=== PATIENT | female | born 1975 | race Caucasian/White ===

== ENCOUNTER → 2023-03-01 10:30 | Outpatient (BNVA) | payer OTHER, SELFPAY | PROVIDERS: PCP Family Medicine; Visit Provider Internal Medicine | DX: E03.9 Hypothyroidism, unspecified (principal) | CPT/HCPCS: 83516; 84439; 84443; 86376; 86800 ==

== ENCOUNTER → 2023-05-30 12:15 | Outpatient (BNVA) | payer OTHER, SELFPAY | PROVIDERS: PCP Family Medicine; Visit Provider Psychiatry & Neurology Neurology | DX: R25.9 Unspecified abnormal involuntary movements (principal); E55.9 Vitamin D deficiency, unspecified; E03.9 Hypothyroidism, unspecified; R41.3 Other amnesia; G47.00 Insomnia, unspecified; E53.8 Deficiency of other specified B group vitamins | CPT/HCPCS: 36415; 80053; 82306; 82525; 82607; 82746; 83090; 83735; 83921; 84207; 84630; 85025 ==

== ENCOUNTER 2023-06-25 11:45 | Outpatient (CLI) | payer OTHER, SELFPAY ==
[2023-06-26 12:13] LABS: Ceruloplasmin 40 mg/dL (18-53)
[2023-06-27 15:37] LABS: Copper Level 166 mcg/dL (70-175)
== END 2023-06-25 11:46 | disposition home or self-care (01) ==
PROVIDERS: PCP Family Medicine; Visit Provider Psychiatry & Neurology Neurology
DX: G25.3 Myoclonus (principal); R56.9 Unspecified convulsions; R41.3 Other amnesia; R29.898 Other symptoms and signs involving the musculoskeletal system; R41.0 Disorientation, unspecified; R25.9 Unspecified abnormal involuntary movements; R26.0 Ataxic gait
CPT/HCPCS: 36415; 82390; 82525

== ENCOUNTER 2023-07-01 14:22 | Outpatient (CLI) | payer OTHER, SELFPAY | END 2023-07-01 14:23 | disposition home or self-care (01) | LOC: LAB 14:23 | PROVIDERS: PCP Family Medicine; Visit Provider Psychiatry & Neurology Neurology | DX: G25.3 Myoclonus (principal); R56.9 Unspecified convulsions; R41.3 Other amnesia; R29.898 Other symptoms and signs involving the musculoskeletal system; R41.0 Disorientation, unspecified; R26.0 Ataxic gait | CPT/HCPCS: 82525 ==

== ENCOUNTER 2023-07-18 14:44 | Outpatient (CLI) | payer OTHER, SELFPAY ==
--- NOTE | 2023-07-18 15:15 | MR_ITS ---
WS: [id number] MRI BRAIN WITH AND WITHOUT CONTRAST HISTORY: R25.9 - Unspecified abnormal involuntary movements COMPARISON: None available. TECHNIQUE: Multiplanar imaging performed through the brain with MultiHance 13 ml's IV. No acute infarcts are seen. Varghese-white matter differentiation is well preserved. Normal hippocampal f ormations. There are a few scattered T2 and FLAIR signal hyperintensities which are not unusual for t he patient's age. No prior infarct. No susceptibility artifacts or prior lacunar infarcts. Ventricles and extra-axial spaces are normal. Clivus and pituitary gland are normal. Visualized posterior fossa and brainstem are also normal. Postcontrast images are negative for masses or vascular malformations. Dural venous sinuses are normal. Paranasal sinuses: Well aerated with no significant disease. Mastoid air cells: Normal. Calvarium and scalp: Normal. MR/MR head wo/w con [id number] IMPRESSION: 1. No acute infarct or hemorrhage. 2. Normal hippocampal formations. 3. No vascular malformation or enhancing mass. 4. No significant volume loss. No prior infarct.
[2023-07-18] MEDS: gadobenate dimeglumine 20 mL vial IV (15:59)
--- NOTE | 2023-07-18 16:00 | MR_ITS ---
WS: [id number] MRI LUMBAR SPINE WITH AND WITHOUT CONTRAST HISTORY: R29.2 - Abnormal reflex COMPARISON: None available. TECHNIQUE: Sagittal and axial multisequence imaging is submitted. Postcontrast imaging in 2 planes. 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 Normal lumbar alignment with no compression fractures or marrow edema. Mild disc desiccation at L4-5. The remaining discs are normal. Conus terminates normally at L1-2 disc level. L1-L2: Normal. L2-L3: Mild bilateral facet joint arthritis. No stenosis. L3-L4: Mild annular disc bulging with bilateral facet arthropathy. Very mild LEFT foraminal narrowing . L4-L5: Mild annular disc bulging with a shallow LEFT foraminal disc protrusion. Moderate facet arthro josefina. Disc encroachment upon the ventral thecal sac and subarticular recesses. There is deformity of the traversing L5 nerve roots, LEFT greater than RIGHT. There is also disc contact on the exiting LE FT L4 nerve root. Mild bilateral foraminal stenosis. L5-S1: Mild facet arthritis. No stenosis. Extrarenal pelvis RIGHT kidney. No discitis or osteomyelitis. No enhancement of the nerve roots. MR/MR lumbar spine wo/w con [id number] IMPRESSION: 1. L4-5: Mild central with moderate bilateral subarticular recess stenosis and mild foraminal stenosis due to combination of disc and osteophyte disease. Mos t significant encroachment upon the traversing L5 nerve roots, LEFT greater brendon n RIGHT and the exiting LEFT L4 nerve root. Moderate facet arthropathy at L4-5. 2. L3-4: Very mild LEFT foraminal narrowing. 3. No discitis or osteomyelitis. No nerve root enhancement.
== END 2023-07-18 14:45 | disposition home or self-care (01) ==
LOC: RAD 14:44
PROVIDERS: PCP Family Medicine; Visit Provider Psychiatry & Neurology Neurology
DX: R25.9 Unspecified abnormal involuntary movements (principal); G47.00 Insomnia, unspecified; R45.86 Emotional lability; R41.3 Other amnesia; R29.2 Abnormal reflex; M48.07 Spinal stenosis, lumbosacral region; E03.9 Hypothyroidism, unspecified
CPT/HCPCS: 36415; 70553; 72158; 84439; 84443; A9577

== ENCOUNTER → 2023-09-17 12:52 | Outpatient (BNVA) | payer OTHER, SELFPAY | PROVIDERS: PCP Family Medicine; Visit Provider Orthopaedic Surgery | DX: E03.9 Hypothyroidism, unspecified; M48.062 Spinal stenosis, lumbar region with neurogenic claudication; Z91.014 Allergy to mammalian meats; F41.9 Anxiety disorder, unspecified; R45.86 Emotional lability; G47.00 Insomnia, unspecified; R25.9 Unspecified abnormal involuntary movements; Z79.890 Hormone replacement therapy | CPT/HCPCS: 36415; 72110; 84439; 84443; 86003; 86008 ==

== ENCOUNTER 2024-03-17 09:24 | Outpatient (CLI) | payer OTHER, SELFPAY ==
[2024-03-17 10:18] LABS: Free T4 Free Thyroxine 1.75 ng/dL (0.82-1.77); Thyroid Stimulating Hormone 0.46 uIU/mL (0.27-4.20)
== END 2024-03-17 09:25 | disposition home or self-care (01) ==
PROVIDERS: PCP Family Medicine; Visit Provider Internal Medicine
DX: E03.9 Hypothyroidism, unspecified (principal)
CPT/HCPCS: 36415; 84439; 84443

== ENCOUNTER → 2024-03-18 15:29 | Outpatient (BNVA) | payer OTHER, SELFPAY | PROVIDERS: PCP Family Medicine; Visit Provider Psychiatry & Neurology Neurology | DX: G25.3 Myoclonus (principal); R56.9 Unspecified convulsions; R26.0 Ataxic gait; R25.9 Unspecified abnormal involuntary movements; R41.0 Disorientation, unspecified; R29.898 Other symptoms and signs involving the musculoskeletal system; R41.3 Other amnesia | CPT/HCPCS: 86337; 86341 ==

== ENCOUNTER 2024-05-06 13:03 | Outpatient (CLI) | payer OTHER, SELFPAY ==
--- NOTE | 2024-05-06 13:45 | MR_ITS ---
WS: [id number] MRI HEAD WITH CONTRAST TECHNIQUE: Sagittal T1, T2 axial, T2 axial FLAIR, axial susceptibility weighted imaging, axial diffusion weighted images, and coronal T2 images were obtained. Pre and post-T1 axial and post T1 coronal images. ADC and FSPGR images. 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 Ventricular system and basal cisterns are patent. Few tiny foci of T2 hyperintensity in the periventricular white matter of doubtful clinical significance but can be seen with hypertension, diabetes, and migraine headaches. No suspicious intracranial s ignal abnormalities. Some images degraded by motion. Mild cerebellar tonsillar ectopia unchanged. Normal posterior fossa. Normal vascular flow voids at the skull base. No extra- axial fluid collections. No evidence of mass or mass effect. Paranasal sinuses and mastoid air cells are well aerated. Normal posterior nasopharynx. No hemosiderin on the susceptibly weighted images. Normal optic chiasm and pituitary infundibulum. Temporal lobes and hippocampal formations are normal in appearance. No abnormal intracranial enhancement. Normal dural venous sinuses. No other suspicious findings. MR/MR head wo/w con [id number] IMPRESSION: Some images degraded motion. 1. No evidence of restricted diffusion to suggest acute ischemia. 2. No suspicious intracranial signal abnormalities. 3. 2 or 3 tiny foci of periventricular and subcortical T2 hyperintensity seen on the FLAIR imaging likely incidental but can be seen with hypertension diabet es and migraine headaches. 4. No normal gadolinium enhancement. 5. Mild cerebellar tonsillar ectopia. 6. No other acute findings.
[2024-05-06] MEDS: gadobenate dimeglumine 20 mL vial 13 ML IV (14:19)
== END 2024-05-06 13:04 | disposition home or self-care (01) ==
LOC: RAD 13:05
PROVIDERS: PCP Family Medicine; Visit Provider Psychiatry & Neurology Neurology
DX: G25.3 Myoclonus (principal); R56.9 Unspecified convulsions; R41.3 Other amnesia; R41.0 Disorientation, unspecified; R93.0 Abnormal findings on diagnostic imaging of skull and head, not elsewhere classified
CPT/HCPCS: 70553; A9577

== ENCOUNTER 2024-05-25 08:53 | Outpatient (CLI) | payer OTHER, SELFPAY ==
--- NOTE | 2024-05-25 09:15 | FL_ITS ---
WS: [email or web address] LUMBAR PUNCTURE UNDER FLUOROSCOPY: OBTAIN CSF FOR ANALYSIS HISTORY: M48.062 - Spinal stenosis, lumbar region with neurogenic ... COMPARISON: None available. FLUOROSCOPY TIME: 0min [id number] # of spot films: 1 Procedure, complications, and risk and benefits explained to the patient. Consent was obtained. Recent laboratory work and medication are reviewed prior to procedure. Skin over the lumbar is cleansed with ChloraPrep and anesthetized with 1% buffered lidocaine. Access into the thecal sac is achieved. CSF is removed in a sterile manner and placed in the sterile tubes. Approximately 12 ml are removed without difficulty. Opening pressure: 12.5 cmH2O. Closing pressure: No significant change. No complications are encountered. CSF this into the laboratory for analysis as requested. FL/FL guided lumbarpunc dx* [id number] IMPRESSION: Uncomplicated lumbar puncture for CSF.
[2024-05-25 10:30] LABS: Mononuclear WBC CSF % 0 % (50-90); Polynuclear WBC CSF % 100 % (0-10); Red Blood Cell CSF 0 10^3/uL (0-0); White Blood Cell CSF 1 /uL (0-5)
[2024-05-25 10:46] LABS: Glucose CSF 57 mg/dL (40-70); Total Protein CSF 21 mg/dL (15-45)
[2024-05-25 11:17] LABS: Appearance CSF CLEAR (CLEAR); Color CSF COLORLESS (COLORLESS)
[2024-05-25 11:43] LABS: CA 125 6.3 U/mL (0-35)
[2024-05-25 11:44] LABS: Albumin Body Fluid 0.2 g/dL
[2024-05-25 11:45] LABS: Tumor Marker Alpha Fetoprotein 2.8 ng/mL (0-8.3)
[2024-05-27 07:40] LABS: Thyroid Peroxidase Antobodies 5 IU/mL (<9)
[2024-05-27 08:45] LABS: Thyroglobulin AB 271 IU/mL (< or = 1)
[2024-05-29 01:40] LABS: VDRL on CSF NON-REACTIVE
== END 2024-05-25 08:54 | disposition home or self-care (01) ==
PROVIDERS: PCP Family Medicine; Visit Provider Psychiatry & Neurology Neurology
DX: M48.062 Spinal stenosis, lumbar region with neurogenic claudication (principal); G25.3 Myoclonus; R56.9 Unspecified convulsions; R41.3 Other amnesia; R29.898 Other symptoms and signs involving the musculoskeletal system; R41.0 Disorientation, unspecified; R26.0 Ataxic gait; G47.00 Insomnia, unspecified; R45.86 Emotional lability; F41.9 Anxiety disorder, unspecified; E03.9 Hypothyroidism, unspecified; R51.9 Headache, unspecified; R93.89 Abnormal findings on diagnostic imaging of other specified body structures
CPT/HCPCS: 36415; 62328; 80503; 82042; 82105; 82945; 84157; 86255; 86304; 86376; 86592; 86800; 87015; 87070; 87075; 87116; 87205; 87206; 87327; 87801; 89050; J9999

== ENCOUNTER 2024-09-04 08:40 | Outpatient (CLI) | payer OTHER, SELFPAY ==
[2024-09-04 10:03] LABS: Free T4 Free Thyroxine 1.37 ng/dL (0.82-1.77); Thyroid Stimulating Hormone 0.60 uIU/mL (0.27-4.20)
== END 2024-09-04 08:41 | disposition home or self-care (01) ==
PROVIDERS: PCP Family Medicine; Visit Provider Internal Medicine
DX: E03.9 Hypothyroidism, unspecified (principal)
CPT/HCPCS: 36415; 84439; 84443

== ENCOUNTER → 2025-01-20 10:42 | Outpatient (BNVA) | payer OTHER, SELFPAY | PROVIDERS: PCP Family Medicine; Referring Provider Family Medicine; Visit Provider Internal Medicine Rheumatology | DX: M25.50 Pain in unspecified joint (principal) | CPT/HCPCS: 80076; 82306; 82565; 83520; 85025; 85651; 86140; 86200; 86431; 86480; 86704; 86803; 87340 ==

== ENCOUNTER → 2025-02-06 17:17 | Outpatient (BNVA) | payer OTHER, SELFPAY | PROVIDERS: PCP Family Medicine; Visit Provider Emergency Medicine | DX: N39.0 Urinary tract infection, site not specified (principal) | CPT/HCPCS: 81000 ==